=== PATIENT | female | born 1955 | race Caucasian/White ===

== ENCOUNTER → 2017-05-04 | Outpatient (CLI) | payer BC ==
[~2017-05-04] MED LIST: ALBUAER19 INH; ATEN-173 PO; CHOL1TAB42; CNT PO; CRS10 PO; CYCL0.05 OP; DTRSR4 PO; DULO60CA44 PO; ENAL10TA88 PO; ESOM40GR PO; FERR1TAB23 PO; HYDR200T5 PO; LACTTAB7; LOVAZA PO; MELO7.5T5 PO; PRAM1TAB52 PO; STLS PO; TIOTCAP INH; TOPI25TA99 PO; XYZAL PO; ZOLP10TA PO; ZOLP5TAB PO; effexor PO
--- NOTE | 2017-05-09 13:20 | CODING QUERY MEDICAL NECESSITY ---
SUPPORTING DIAGNOSIS NEEDED A supporting diagnosis is required for the test/procedure performed on this patient in order for us to be reimbursed by the patient's insurance. Please provide a supporting diagnosis for the following test/procedure listed below next to the test name along with your signature. *If there is no additional diagnosis for this patient that would support the following test/procedure please document that below next to the test/procedure. Test(s)/Procedure(s) that require a supporting diagnosis: * VITAMIN D, 25-HYDROXY DIAGNOSIS: Provider Signature: Date: Thank you Denise Merino [employer] Once completed, please kindly fax back to [phone] For questions please call [phone]
== END | disposition home or self-care (01) ==
LOC: C.LABBC 09:48
PROVIDERS: ATTEND Anesthesiology
DX: M25.50 Pain in unspecified joint (principal); E55.9 Vitamin D deficiency, unspecified

== ENCOUNTER 2022-11-02 06:54 | Observation (INO) ==
--- NOTE | 2022-09-11 11:59 | PAT Medication Instructions ---
Medication Instructions Date of Service September 11, 2022 Home Medications Medication Instructions Recorded cyclobenzaprine 10 mg tablet 10 mg PO TID PRN muscle spasm #90 10/14/21 tabs topiramate 25 mg tablet (Topamax) 25 mg PO BID #60 tabs 12/21/21 trazodone 50 mg tablet See Rx Instructions .Route 05/10/22 .COMPLEX PRN insomnia #60 tabs albuterol 90 mcg/actuation aerosol inhaler 90 mcg inhalation QID PRN atenolol 25 mg tablet (Tenormin) 25 mg PO QAM cholecalciferol (vitamin D3) 125 mcg (5,000 unit) capsule 5,000 units PO QAM cyclosporine 0.05 % eye drops (Restasis MultiDose) 1 drops ophthalmic (eye) BID docusate sodium 100 mg capsule (Colace) 200 mg PO HS enalapril maleate 20 mg tablet (Vasotec) 20 mg PO QAM esomeprazole magnesium 40 mg capsule,delayed release (Nexium) 40 mg PO QAM levocetirizine 5 mg tablet (Xyzal) 5 mg PO QAM multivitamin-ferrous fumarate-folic acid 18 mg-400 mcg tablet (Centrum Women) 1 tab PO QAM pramipexole 0.25 mg tablet (Mirapex) 0.25 mg PO QPM rosuvastatin 10 mg tablet (Crestor) 10 mg PO QPM tiotropium bromide 18 mcg capsule with inhalation device (Spiriva with HandiHaler) 1 cap inhalation QAM PRN tolterodine 4 mg capsule,extended release 24 hr (Detrol LA) 4 mg PO QAM gabapentin 100 mg capsule 100 mg PO HS acetaminophen 300 mg-codeine 60 mg tablet 0.5 tab PO BID PRN cyclobenzaprine 10 mg tablet 10 mg PO TID PRN leflunomide 10 mg tablet (Arava) 10 mg PO QAM topiramate 25 mg tablet (Topamax) 25 mg PO BID celecoxib 200 mg capsule (Celebrex) 200 mg PO QAM trazodone 50 mg tablet See Rx Instructions .Route .COMPLEX PRN azelastine 137 mcg (0.1 %) nasal spray aerosol 1 spray intranasal BID PRN fexofenadine 180 mg tablet (Nancy Allergy) 180 mg PO QAM gabapentin 250 mg/5 mL (5 mL) oral solution 250 mg PO TID PRN hydrochlorothiazide 25 mg tablet 25 mg PO QAM montelukast 10 mg tablet 10 mg PO HS venlafaxine 150 mg capsule,extended release 24 hr (Effexor XR) 150 mg PO QAM Continue as directed trazodone 50 mg tablet See Rx Instructions .Route .COMPLEX PRN(if needed) ASK your surgeon for instructions acetaminophen 300 mg-codeine 60 mg tablet 0.5 tab PO BID PRN celecoxib 200 mg capsule (Celebrex) 200 mg PO QAM ASK your prescriber and surgeon leflunomide 10 mg tablet (Arava) 10 mg PO QAM DO NOT take the morning of surgery cholecalciferol (vitamin D3) 125 mcg (5,000 unit) capsule 5,000 units PO QAM levocetirizine 5 mg tablet (Xyzal) 5 mg PO QAM multivitamin-ferrous fumarate-folic acid 18 mg-400 mcg tablet (Centrum Women) 1 tab PO QAM cyclobenzaprine 10 mg tablet 10 mg PO TID PRN fexofenadine 180 mg tablet (Nanyc Allergy) 180 mg PO QAM hydrochlorothiazide 25 mg tablet 25 mg PO QAM Take morning of surgery With a small sip of water, OTHERWISE NOTHING TO EAT OR DRINK AFTER MIDNIGHT: albuterol 90 mcg/actuation aerosol inhaler 90 mcg inhalation QID PRN(use if needed; please bring with you to hospital day of surgery if possible) atenolol 25 mg tablet (Tenormin) 25 mg PO QAM cyclosporine 0.05 % eye drops (Restasis MultiDose) 1 drops ophthalmic (eye) BID enalapril maleate 20 mg tablet (Vasotec) 20 mg PO QAM esomeprazole magnesium 40 mg capsule,delayed release (Nexium) 40 mg PO QAM tiotropium bromide 18 mcg capsule with inhalation device (Spiriva with HandiHaler) 1 cap inhalation QAM PRN(if needed) tolterodine 4 mg capsule,extended release 24 hr (Detrol LA) 4 mg PO QAM topiramate 25 mg tablet (Topamax) 25 mg PO BID azelastine 137 mcg (0.1 %) nasal spray aerosol 1 spray intranasal BID PRN gabapentin 250 mg/5 mL (5 mL) oral solution 250 mg PO TID PRN(if needed) venlafaxine 150 mg capsule,extended release 24 hr (Effexor XR) 150 mg PO QAM Take evening before surgery albuterol 90 mcg/actuation aerosol inhaler 90 mcg inhalation QID PRN(if needed) cyclosporine 0.05 % eye drops (Restasis MultiDose) 1 drops ophthalmic (eye) BID docusate sodium 100 mg capsule (Colace) 200 mg PO HS pramipexole 0.25 mg tablet (Mirapex) 0.25 mg PO QPM rosuvastatin 10 mg tablet (Crestor) 10 mg PO QPM gabapentin 100 mg capsule 100 mg PO HS cyclobenzaprine 10 mg tablet 10 mg PO TID PRN(if needed) topiramate 25 mg tablet (Topamax) 25 mg PO BID azelastine 137 mcg (0.1 %) nasal spray aerosol 1 spray intranasal BID PRN(if needed) gabapentin 250 mg/5 mL (5 mL) oral solution 250 mg PO TID PRN(if needed) montelukast 10 mg tablet 10 mg PO HS Other Notes If you have any questions please call us at [phone] or [phone] or [phone] or [phone]
--- NOTE | 2022-09-18 13:41 | Anesthesiology Consultation ---
Date of Service September 18, 2022 Assessment & Plan (1) Encounter for pre-operative examination: - COVID screening: Per assessment on 09/18: No known COVID-19 positive contacts or current COVID-19 related symptoms. Travel screen negative. Patient vaccinated. At surgeon discretion if preop Covid testing being done. - Outpatient joint assessment: Pt currently scheduled for inpatient pathway. If surgeon requests review for outpatient joint pathway, patient is an acceptable candidate for outpatient joint program from anesthesia standpoint pending surgeon's office assessment that patient is motivated, has good support and completes Same Day Joint Program preop requirements. - Ankylosing spondylitis: See testing section for lumbar spine MRI findings from 10/2021. Possible difficult intubation d/t decreased cervical extension. Ultimate anesthesia type decision per anesthesiologist DOS. - Hypokalemia: Potassium 3.2 on preop labs. Will recheck potassium level AM DOS. Chart Review Chart Review: Acceptable Risk for Surgery and Patient seen in Pre Admission Testing Teaching & Discussion Pre-Anesthesia Teaching/Discussion Notes: Instructed NPO after midnight before surgery,except medications with 15 cc of water. Medication instructions provided according to the PAT guidelines. History Surgery Operation Date: 10/23/22 07:15 Proposed Procedures p Left Total Knee Arthroplasty - Uriah Lugo MD Height/Weight Height: 5 ft 6 in Weight: 107.2 kg Allergies Allergy/AdvReac Type Severity Reaction Status Date / Time Sulfa (Sulfonamide Allergy Severe Rash Verified 09/08/22 10:08 Antibiotics) Medications Home Medications Medication Instructions Recorded Confirmed Last Taken albuterol 90 mcg/actuation aerosol 90 mcg inhalation QID PRN sob 02/25/18 09/08/22 Unknown inhaler atenolol 25 mg tablet (Tenormin) 25 mg PO QAM 02/25/18 09/08/22 Unknown cholecalciferol (vitamin D3) 125 5,000 units PO QAM 02/25/18 09/08/22 Unknown mcg (5,000 unit) capsule cyclosporine 0.05 % eye drops 1 drops ophthalmic (eye) BID 02/25/18 09/08/22 Unknown (Restasis MultiDose) docusate sodium 100 mg capsule 200 mg PO HS 02/25/18 09/08/22 Unknown (Colace) enalapril maleate 20 mg tablet 20 mg PO QAM 02/25/18 09/08/22 Unknown (Vasotec) esomeprazole magnesium 40 mg 40 mg PO QAM 02/25/18 09/08/22 Unknown capsule,delayed release (Nexium) levocetirizine 5 mg tablet (Xyzal) 5 mg PO QAM 02/25/18 09/08/22 Unknown multivitamin-ferrous 1 tab PO QAM 02/25/18 09/08/22 Unknown fumarate-folic acid 18 mg-400 mcg tablet (Centrum Women) pramipexole 0.25 mg tablet 0.25 mg PO QPM 02/25/18 09/08/22 Unknown (Mirapex) rosuvastatin 10 mg tablet (Crestor) 10 mg PO QPM 02/25/18 09/08/22 Unknown tiotropium bromide 18 mcg capsule 1 cap inhalation QAM PRN sob 02/25/18 09/08/22 Unknown with inhalation device (Spiriva with HandiHaler) tolterodine 4 mg capsule,extended 4 mg PO QAM 02/25/18 09/08/22 Unknown release 24 hr (Detrol LA) gabapentin 100 mg capsule 100 mg PO HS 10/03/19 09/08/22 Unknown acetaminophen 300 mg-codeine 60 mg 0.5 tab PO BID PRN Pain 10/14/21 09/08/22 Unknown tablet cyclobenzaprine 10 mg tablet 10 mg PO TID PRN muscle spasm #90 10/14/21 09/08/22 Unknown tabs leflunomide 10 mg tablet (Arava) 10 mg PO QAM 10/14/21 09/08/22 Unknown topiramate 25 mg tablet (Topamax) 25 mg PO BID #60 tabs 12/21/21 09/08/22 Unknown celecoxib 200 mg capsule (Celebrex) 200 mg PO QAM 04/12/22 09/08/22 Unknown trazodone 50 mg tablet See Rx Instructions .Route 05/10/22 09/08/22 Unknown .COMPLEX PRN insomnia #60 tabs azelastine 137 mcg (0.1 %) nasal 1 spray intranasal BID PRN sinus 09/08/22 09/08/22 Unknown spray aerosol congestion fexofenadine 180 mg tablet 180 mg PO QAM 09/08/22 09/08/22 Unknown (Nancy Allergy) gabapentin 250 mg/5 mL (5 mL) oral 250 mg PO TID PRN Pain 09/08/22 09/08/22 Unknown solution hydrochlorothiazide 25 mg tablet 25 mg PO QAM 09/08/22 09/08/22 Unknown montelukast 10 mg tablet 10 mg PO HS 09/08/22 09/08/22 Unknown venlafaxine 150 mg 150 mg PO QAM 09/08/22 09/08/22 Unknown capsule,extended release 24 hr (Effexor XR) Past Medical History Medical History Ankylosing spondylitis Anxiety Cervical radiculitis COPD (chronic obstructive pulmonary disease) well controlled Depression GERD (gastroesophageal reflux disease) Hiatal hernia History of COVID-19 2020- mild symptoms History of IBS HTN (hypertension) Hyperlipemia Lumbar stenosis with neurogenic claudication Obesity Polyarthropathy, multiple sites RLS (restless legs syndrome) Sacroiliitis Sleep apnea CPAP (compliant) Suprascapular neuropathy Exercise / Class Metabolic Activity III < 4 Walking/Shop/Light housework (one FS (no CP, mild SOB)) Past Family History Family History Other No family history of adverse response to anesthesia Past Surgical History Surgical History History of bladder surgery bladder sling History of carpal tunnel surgery of right wrist History of cataract surgery bilateral History of colonoscopy History of dilatation and curettage History of esophagogastroduodenoscopy (EGD) History of nasal septoplasty History of tonsillectomy and adenoidectomy Hx of hysterectomy DAVID with unilateral salping-oopherectomy Hx of LASIK S/P cervical spinal fusion ACDF C5-6 1994, ACDF C6-7 2003 S/P epidural steroid injection S/P left knee arthroscopy S/P right knee arthroscopy S/P unilateral salpingo-oophorectomy d/t ovarian cystectomy Status post creation of urethral sling [place] [facility] [place] Past Anesthesia History No Hx of Anesthesia Complications (except PONV) and No Family Hx of Anesthesia Complications History of PONV History of PONV (Improvement when pre-treatment medication given) and Hx of Motion Sickness (+ cruises) Social History Smoking Status: Current every day smoker tobacco type: cigarettes Smoking cigarettes per day: 15 cigs/day Do You Dip or Chew Tobacco: No Hx Alcohol Use: Yes alcohol intake frequency: holidays/special occasions only Hx Substance Use: No substance use type: does not use Review of Systems Seasonal allergies- stable. Patient denies chest pain, shortness of breath, fever, chills, cough, wheezing, palpitations. Physical Exam Vital Signs VITALS BP 103/68 P 74 TEMP 98.8 SP02 95%RA RESP 18 PHYSICAL Decreased cervical extension range of motion. Full TMJ range of motion. TMD 3.5 finger breaths Mallampati Score 3 Dentition: upper sides missing, upper front tooth repaired Lungs: clear throughout to auscultation Cardiac: regular rate and rhythm, no murmurs noted Spine: normal Carotid arteries: negative bruit Extremities: no LE edema Lab Results Anesthesia Preop Results Results Anesthesia Widget: WBC 8.90 K/ul (4.8-10.8) 09/18/22 Hgb 14.0 g/dl (12.0-16.0) 09/18/22 Hct 42.7 % (37.0-47.0) 09/18/22 Plt 240 K/uL (130-400) 09/18/22 Na 140 mmol/L (136-145) 09/18/22 K 3.2 mmol/L (3.5-5.1) L 09/18/22 Cl 105 mmol/L (98-107) 09/18/22 CO2 27 mmol/L (21-32) 09/18/22 BUN 12 mg/dl (6-23) 09/18/22 Creat 0.65 mg/dl (0.6-1.2) 09/18/22 Glucose Level 127 mg/dl (70-99(Fasting)) H 09/18/22 PT 10.3 Seconds (9.0-12.0) 09/18/22 PTT 28.4 Seconds (21.0-31.0) 09/18/22 INR 0.9 (0.9-1.1) 09/18/22 Urine Color Yellow 09/18/22 Urine Appearance Clear (Clear) 09/18/22 Urine pH 7.0 (4.5-7.5) 09/18/22 Urine Specific [place] 1.019 (1.000-1.030) 09/18/22 Urine Protein Negative (Negative) 09/18/22 Urine Glucose (UA) Negative (Negative) 09/18/22 Urine Ketones Negative (Negative) 09/18/22 Urine Blood Negative (Negative) 09/18/22 Urine Nitrite Negative (Negative) 09/18/22 Urine Bilirubin Negative (Negative) 09/18/22 Urine Urobilinogen Negative (Negative) 09/18/22 Urine Leukocyte Esterase Negative (Negative) 09/18/22 Blood Type O Positive 09/18/22 Antibody Screen NEGATIVE 09/18/22 Testing Electrocardiogram Date: 09/18/22 NSR at 68bpm. Chest X-Ray Date: 09/18/22 FINDINGS: PA and lateral chest radiographs are obtained. No prior studies are available for comparison at the time of dictation. The cardiomediastinal silhouette is unremarkable. The lungs and pleural spaces are clear noting mild bibasilar scarring/atelectasis. There is no pneumothorax. The skeletal structures are osteopenic. The bony thorax appears intact. Fusion hardware is noted in the lower cervical spine. Degenerative change is seen in the thoracic region. IMPRESSION: No active disease in the chest. Other Testing Lumbar MRI Date: 10/27/21 The alignment is anatomical. Disks are normal in height and signal. L1-L2: No significant abnormality. L2-L3: There is a large posterior disc bulge with moderate to severe canal stenosis, AP diameter 7 mm. No significant neuroforaminal stenosis is seen. L3-L4: Large posterior disc bulge and facet arthropathy results in moderate bilateral neural foraminal stenosis. There is severe canal stenosis, AP diameter 6.5 mm. L4-L5: Moderate bilateral neural foraminal stenosis is seen. There is a broad- based posterior disc bulge and bilateral facet arthropathy resulting in severe canal stenosis, AP diameter 6 mm. L5-S1: Large posterior disc bulge results in severe bilateral neuroforaminal stenosis. No significant canal stenosis is seen. The spinal ligaments are intact, without evidence of disruption or abnormal signal intensity. The spinal cord is normal in signal intensity and there is no evidence of cord contusion. There is no evidence of an extradural, intradural, extramedullary or intramedullary lesion. A small amount of edema in the posterior soft tissues is nonspecific. IMPRESSION: Interval worsening of multilevel disc disease. There is now up to severe bilateral neural foraminal stenosis and severe canal stenosis, AP diameter 6 mm. No cord edema is seen. COVID-19 Risk Screen Screening Information COVID-19 Screen Date: 09/18/22 Exposure 21 Days Family/Household +COVID Last 21 Days: No Exposure 10 Days Any COVID Exposure Last 10 Days: No Symptoms Last 10 Days Experienced COVID Sx Last 10 Days: No + COVID 0-90 Days COVID + in Last 0-90 Days: No
--- NOTE | 2022-10-31 17:35 | History & Physical Report ---
Date of Service October 31, 2022 Assessment & Plan (1) Primary osteoarthritis of left knee: Plan: Treatment options discussed with patient. She has failed conservative measures and would like to proceed with surgical invention. Risks, benefits and alternatives to surgery including but not limited to infection, DVT, pain, stiffness, need for revision surgery, damage to blood vessels, damage to nerves, PE, , were discussed with the patient and they wish to proceed. Plan for left total knee arthroplasty scheduled for November 02 at [facility] with Dr. Lugo. Plan on aspirin 81 mg twice daily for 1 month postop versus Xarelto 10 mg daily for 1 month postop for DVT prophylaxis. Plan on outpatient physical therapy postop. Questions answered. Patient will follow-up postoperatively. History of Present Illness Chief Complaint: Left knee pain Primary Care Provider: EVAN Mantilla 67-year-old female with past medical history significant for GERD, hypertension who presents with ongoing left knee pain. Pain is interfering with her daily activities. She is failed conservative measures. She previously underwent left knee arthroscopy with ongoing pain and progressive arthritis. She would like to proceed with surgical intervention. Patient denies headaches, sweats, fevers, chills, double vision, blurred vision, cough, sore throat, dysphagia, chest pain, sob, wheezing, n/v/d/c, numbness, tingling, fatigue, urinary symptoms, mood disorders. ROS positive for left knee pain and stiffness. Allergies Allergy/AdvReac Type Severity Reaction Status Date / Time Sulfa (Sulfonamide Allergy Severe Rash Verified 09/08/22 10:08 Antibiotics) Home Medications Medication Instructions Recorded Confirmed Type albuterol 90 mcg/actuation aerosol 90 mcg inhalation QID PRN sob 02/25/18 09/08/22 History inhaler atenolol 25 mg tablet (Tenormin) 25 mg PO QAM 02/25/18 09/08/22 History cholecalciferol (vitamin D3) 125 5,000 units PO QAM 02/25/18 09/08/22 History mcg (5,000 unit) capsule cyclosporine 0.05 % eye drops 1 drops ophthalmic (eye) BID 02/25/18 09/08/22 History (Restasis MultiDose) docusate sodium 100 mg capsule 200 mg PO HS 02/25/18 09/08/22 History (Colace) enalapril maleate 20 mg tablet 20 mg PO QAM 02/25/18 09/08/22 History (Vasotec) esomeprazole magnesium 40 mg 40 mg PO QAM 02/25/18 09/08/22 History capsule,delayed release (Nexium) levocetirizine 5 mg tablet (Xyzal) 5 mg PO QAM 02/25/18 09/08/22 History multivitamin-ferrous 1 tab PO QAM 02/25/18 09/08/22 History fumarate-folic acid 18 mg-400 mcg tablet (Centrum Women) pramipexole 0.25 mg tablet 0.25 mg PO QPM 02/25/18 09/08/22 History (Mirapex) rosuvastatin 10 mg tablet (Crestor) 10 mg PO QPM 02/25/18 09/08/22 History tiotropium bromide 18 mcg capsule 1 cap inhalation QAM PRN sob 02/25/18 09/08/22 History with inhalation device (Spiriva with HandiHaler) tolterodine 4 mg capsule,extended 4 mg PO QAM 02/25/18 09/08/22 History release 24 hr (Detrol LA) gabapentin 100 mg capsule 100 mg PO HS 10/03/19 09/08/22 History acetaminophen 300 mg-codeine 60 mg 0.5 tab PO BID PRN Pain 10/14/21 09/08/22 History tablet cyclobenzaprine 10 mg tablet 10 mg PO TID PRN muscle spasm #90 10/14/21 09/08/22 Rx tabs leflunomide 10 mg tablet (Arava) 10 mg PO QAM 10/14/21 09/08/22 History topiramate 25 mg tablet (Topamax) 25 mg PO BID #60 tabs 12/21/21 09/08/22 Rx celecoxib 200 mg capsule (Celebrex) 200 mg PO QAM 04/12/22 09/08/22 History trazodone 50 mg tablet See Rx Instructions .Route 05/10/22 09/08/22 Rx .COMPLEX PRN insomnia #60 tabs azelastine 137 mcg (0.1 %) nasal 1 spray intranasal BID PRN sinus 09/08/22 09/08/22 History spray aerosol congestion fexofenadine 180 mg tablet 180 mg PO QAM 09/08/22 09/08/22 History (Nancy Allergy) gabapentin 250 mg/5 mL (5 mL) oral 250 mg PO TID PRN Pain 09/08/22 09/08/22 History solution hydrochlorothiazide 25 mg tablet 25 mg PO QAM 09/08/22 09/08/22 History montelukast 10 mg tablet 10 mg PO HS 09/08/22 09/08/22 History venlafaxine 150 mg 150 mg PO QAM #30 caps 09/25/22 Rx capsule,extended release 24 hr (Effexor XR) Past Med/Surg History Medical History Ankylosing spondylitis Anxiety Cervical radiculitis COPD (chronic obstructive pulmonary disease) well controlled Depression GERD (gastroesophageal reflux disease) Hiatal hernia History of COVID-2020- mild symptoms History of IBS HTN (hypertension) Hyperlipemia Lumbar stenosis with neurogenic claudication Obesity Polyarthropathy, multiple sites RLS (restless legs syndrome) Sacroiliitis Sleep apnea CPAP (compliant) Suprascapular neuropathy Surgical History History of bladder surgery bladder sling History of carpal tunnel surgery of right wrist History of cataract surgery bilateral History of colonoscopy History of dilatation and curettage History of esophagogastroduodenoscopy (EGD) History of nasal septoplasty History of tonsillectomy and adenoidectomy Hx of hysterectomy DAVID with unilateral salping-oopherectomy Hx of LASIK S/P cervical spinal fusion ACDF C5-6 1994, ACDF C6-7 2003 S/P epidural steroid injection S/P left knee arthroscopy S/P right knee arthroscopy S/P unilateral salpingo-oophorectomy d/t ovarian cystectomy Status post creation of urethral sling by suprapubic approach [facility] [place] with Dr Miles Family History Other No family history of adverse response to anesthesia Social History Smoking Status: Current every day smoker Cigarettes Per Day: 15 cigs/day; Second Hand Exposure: Yes; Do You Dip or Chew Tobacco: No; Hx Alcohol Use: Yes Hx Substance Use: No Preferred Language: Irish Communication Ability: Effective Visual Impairment: No Limitations Hearing Ability: Normal Metal Door Assembler Required: No Beliefs That Will Affect Care: None marital status: Current Living Situation: Spouse current occupational status: employed current occupation: shipping and receiving associate Adhysteria Feels Safe at Home: Yes Assistive Devices: Cane and CPAP Review of Systems All systems reviewed & are unremarkable except as noted in HPI & below Physical Exam Constitutional: well developed and well nourished; no acute distress Eyes: PERRL, conjunctivae normal, anicteric sclerae ENMT: external ear and nose normal, oropharynx normal Neck: trachea midline, no thyromegaly Respiratory: normal respiratory effort, lungs clear to auscultation Cardiovascular: RRR, no murmur, no edema Musculoskeletal: Left knee: Mild effusion. Medial joint line tenderness. Stable to valgus and varus stress test. Range of motion 0 to 125 degrees. Pain with passive range of motion. Skin: no rashes, warm and dry Neurologic: patellar DTR's 2+ bilat, sensation intact Psychiatric: A+Ox3, euthymic affect Results & Data Laboratory Results Left knee radiographs demonstrate end-stage osteoarthritis, [id number] medial compartment. There is vertical osteophytes.
[~2022-11-02 06:54] MED LIST changes: +ACETAMINOPHEN 500 MG TAB PO SCH; -ALBUAER19 INH; -ATEN-173 PO; +BUPIVACAINE 0.5 % 5 MG/1 ML PF 10ML VIAL ONE; -CHOL1TAB42; -CNT PO; -CRS10 PO; -CYCL0.05 OP; +CeleBREX 200 MG CAP PO SCH; +DEXAMETHASONE SOD INJ 4 MG/ML VIAL ONE; -DTRSR4 PO; -DULO60CA44 PO; -ENAL10TA88 PO; +EPINEPHrine INJ 1 MG/ML AMP ONE; -ESOM40GR PO; +FAMOTIDINE 20 MG TAB PO SCH; -FERR1TAB23 PO; +GABAPENTIN 300 MG CAP PO SCH; -HYDR200T5 PO; -LACTTAB7; +LIDOCAINE 2% 2 ML VIAL/AMP(20MG/ML) INFIL ONE; -LOVAZA PO; +LR 15ML/HR IV SCH; -MELO7.5T5 PO; +METOCLOPRAMIDE HCL 10 MG TABLET PO SCH; +MIDAZOLAM HCL 1 MG/ML 2ML VIAL ONE; +ONDANSETRON INJ 2 MG/ML 2 ML VIAL ONE; +ORTHO JOINT ANESTHETIC ONE; -PRAM1TAB52 PO; +PROPOFOL IV EMULSION 10 MG/ML 20 ML VIAL IV ONE; +ROPIVACAINE 0.5% 5 MG/ML 30 ML VIAL ONE; +ROPIVACAINE 0.5% HCL/PF 150 MG, BUPIVACAINE 0.75% MPF 20 ML, EPINEPHrine 30MG/30ML (OR ... INSTIL SCH; -STLS PO; -TIOTCAP INH; -TOPI25TA99 PO; +TRANEXAMIC ACID 1,000 MG **IV Intra-op IV SCH; +TRANEXAMIC ACID 1,000 MG **IV Pre-op IV SCH; -XYZAL PO; -ZOLP10TA PO; -ZOLP5TAB PO; +ceFAZolin 2000MG 2,000 MG/15 ML SYR IV SCH; +dexAMETHasone 4 MG TAB PO SCH; -effexor PO; +fentaNYL citrate PF 100 MCG/2 ML VIAL ONE
--- NOTE | 2022-11-02 07:17 | History & Physical Bridge Note ---
Date of Service November 02, 2022 History & Physical Bridge Note I have examined the patient, reviewed the History & Physical and in the interval since the performance of the History & Physical I have noted the following changes of clinical significance: no changes noted
[2022-11-02] MEDS ORDERED: NALOXONE HCL 0.4 MG/1 ML VIAL/CARP IV PRN ×2 (07:58→11:48)
[2022-11-02] MEDS ORDERED: fentaNYL citrate PF 100 MCG/2 ML VIAL IV PRN (07:58)
[2022-11-02] MEDS ORDERED: LABETALOL HCL IV 5 MG/ML 20ML IV PRN (07:58)
[2022-11-02] MEDS ORDERED: ePHEDrine sulfate 50 MG/ML AMP IV PRN (07:58)
[2022-11-02] MEDS ORDERED: HYDROmorphone INJ 1 MG/ML SYRINGE IV PRN (07:58)
[2022-11-02] MEDS ORDERED: ONDANSETRON INJ 2 MG/ML 2 ML VIAL IV PRN ×2 (07:58→11:48)
[2022-11-02] MEDS ORDERED: ATROPINE SULFATE 0.1 MG/ML 10ML SYR IV PRN (07:58)
[2022-11-02] MEDS ORDERED: FLUMAZENIL 0.1 MG/1 ML 10 ML VIAL IV PRN (07:58)
[2022-11-02] MEDS ORDERED: PROMETHAZINE HCL 12.5 MG in SODIUM CHLORIDE 0.9% 50 ML IV PRN (07:58)
[2022-11-02] MEDS ORDERED: PHENYLEPHRINE 100MCG/ML 5ML SYR ONE (08:14)
[2022-11-02] MEDS ORDERED: ePHEDrine sulfate 50 MG/ML SYR ONE (08:31)
[2022-11-02] MEDS ORDERED: MIDAZOLAM HCL 1 MG/ML 2ML VIAL ONE (08:33)
[2022-11-02] MEDS ORDERED: PROPOFOL IV EMULSION 10 MG/ML 20 ML VIAL IV ONE (09:22)
--- NOTE | 2022-11-02 09:27 | Operative Report ---
Post Operative Report Pre & Post Diagnosis Operation Date: 11/02/22 07:00 Pre-Op Diagnosis: Left Knee Osteoarthritis Post-Op Diagnosis: Left Knee Osteoarthritis I identified the patient and participated in the time-out.: Yes Procedure Operation Date: 11/02/22 07:00 Actual Procedures p Left Total Knee Arthroplasty(Left), lateral release, fidelia and Acticoat superficial wound VAC- Uriah Lugo MD Surgeon Uriah Lugo MD Industrial Robotics Mechanic Nabil ENRIQUE Estimated Blood Loss 5 Findings Consistent with Post-Op Diagnosis Specimens Bone cuts Drains 2 Hemovac drains Anesthesia Type MAC Spinal Regional Complications none Disposition Disposition: Recovery Room Indications 67-year-old female with progressive osteoarthritis left knee failed conservative management. Primarily medial compartment osteoarthritis with [id number] medial compartment with a varus knee. Description of Procedure Patient was taken to the operating room placed supine on the operating table and anesthetized under spinal MAC regional block anesthesia. Exam under anesthesia demonstrated obese upper thigh moderate obesity within the BMI is 38. A pneumatic tourniquet was placed about the thigh of the left lower extremity. The left lower extremity was prepped and draped in usual sterile fashion. The leg was elevated exsanguinated with an Esmarch bandage and the pneumatic tourniquet was raised to 325 mm mercury. An anterior incision was made across the left knee. The skin was incised longitudinally subcutaneous flaps were elevated and an incision was made through the medial retinaculum extending up into the mid third of the quadriceps tendon and extended down to the medial tibial tubercle. Intra-articular findings demonstrated medial compartment osteoarthritis [id number]. She had more than typical scar tissue in the synovial tissue including the suprapatellar area where there were several adhesions of scar tissue. Also had a scarred suprapatellar plica and medial plica. The knee was exposed by excising the infrapatellar fat pad, excising the meniscal remnants and anterior cruciate ligament. Any inflamed synovial tissue was resected including the scarred adhesions and the plicas. The fat pad over the anterior femur was resected for placement of the component in that area. The lateral synovial bands were release. The femur was exposed. The custom femoral cutting block was pinned in position. The distal femoral cutting block was applied. The distal femoral cut was made with the oscillating saw. The size 7, 4-in-1 cutting block was placed. The anterior and posterior chamfer cuts were made. Patient had very dense hard bone. The knee was extended and a subperiosteal peel lateral release was performed around the patella. The patella width was measured and width was reproduced using freehand cut technique. The 32 millimeter symmetrical patella was used. 3 drill holes are made for the pegs. The tibia was exposed. A custom tibial cutting block was positioned and drill holes were made for the cutting guide. Cutting guide was placed and the proximal cut was made with the oscillating saw. All osteophytes were resected. The lamina edge brusher was used to assess ligamentous balance and the ligaments were balanced in extension and flexion. A medial posterior medial release and PCL had to be resected in order to balance the flexion extension gaps. The tibia was reexposed and measured for a size E tibial component. This was externally rotated in line with the tibial tubercle and the fixation pins we re drilled. The proximal tibia was fashioned with the drill and punch. The size 7 CR femoral trial was inserted. The trial MC inserts were used. The 13 mm insert gave balanced ligaments through full range of motion. The patella tracked with some lift off and lateral tilt so the lateral release was performed preserving the synovium and the patella tracked centrally. the trials were removed. The orthomix anesthetic cocktail was injected per protocol. The knee was then copiously irrigated with pulsatile lavage saline solution. The final components were cemented with Refobacin bone cement. The final components were 7 standard CR left persona femoral component, E left tibial component, 13 mm MC tibial polyethylene 32 mm symmetrical patella polyethylene. After the cement cured with the knee in full extension the Betadine soak was used per protocol. The knee joint was copiously irrigated with pulsatile lavage saline solution . 2 drains were brought out laterally and connected to a Hemovac. The quadriceps tendon and medial retinaculum were closed with interrupted [id number] #1 Vicryl sutures. The knee was taken through a full range of motion which was 0 through 130 degrees and the repair was secure. The subcutaneous tissues were closed with 2-0 Vicryl sutures and skin was closed with mary jo.A Fidelia and Acticoat superficial wound VAC was applied and the patient tolerated the procedure well. Nabil ENRIQUE my physician insurance sales assistant participated as certified surgical first assistant and was an integral part in all aspects of the procedure, he assisted in soft tissue retraction, instrument management ,leg positioning, the closure, application of the superficial wound VAC and will participate in the postoperative care of the patient. I attest to the content of the Intraoperative Record and any orders documented therein. Any exceptions are noted below.
--- NOTE | 2022-11-02 10:38 | XRay Report ---
XR knee LT 1 or 2V routine CLINICAL HISTORY: Postoperative evaluation. COMPARISON: Knee radiographs August 04, 2022. MRI of the left knee September 18, 2022. FINDINGS: Alignment of the total left knee arthroplasty is anatomic. There is no periprosthetic frac ture or unexpected radiopaque foreign body. There are skin mary jo. Surgical drains are noted. IMPRESSION: Expected findings following total left knee arthroplasty. ACT 112: Negative or not required by law. Electronically signed by: Curtis Asher M.D. 11/02/2022 10:37 AM
--- NOTE | 2022-11-02 11:18 | Anesthesiology Progress Note ---
Date of Service November 02, 2022 Anesthesia Post Procedure Vital Signs Vital Signs: Temp Pulse Resp BP Pulse Ox O2 Del Method O2 Flow Rate 11/02/22 10:40 72 14 117/67 97 Nasal Cannula 2 11/02/22 10:30 69 13 106/72 99 Nasal Cannula 2 11/02/22 11:10 36.5 C 70 16 117/68 97 Nasal Cannula 2 11/02/22 11:00 70 14 112/69 97 Nasal Cannula 2 11/02/22 10:50 76 12 108/68 98 Nasal Cannula 2 11/02/22 10:20 71 14 112/68 98 Oxymask 4 11/02/22 10:10 73 16 107/65 100 Oxymask 6 11/02/22 09:58 36.2 C L 78 14 106/66 97 Oxymask 6 Transfer of Care Handoff Completed per policy Notes Mental Status: alert / awake / arousable Patient Amnestic to Procedure: Yes Nausea / Vomiting: adequately controlled Pain: adequately controlled Airway Patency, RR, SpO2: stable & adequate BP & HR: stable & adequate Hydration State: stable & adequate Neuraxial Anesthesia: was administered and sensory block is resolving Anesthetic Complications: no major complications apparent
[2022-11-02] MEDS ORDERED: AZELASTINE HCL 0.1% NASAL 200 SPRAYS/27,400 MCG BTL PRN (11:48)
[2022-11-02] MEDS ORDERED: traZODone HCL 50 MG TAB PO PRN (11:48)
[2022-11-02] MEDS ORDERED: MAGNESIUM HYDROXIDE SUSP 30 ML UDC PO PRN (11:48)
[2022-11-02] MEDS ORDERED: CYCLOBENZAPRINE HCL 10 MG TAB PO PRN (11:48)
[2022-11-02] MEDS ORDERED: diphenhydrAMINE 50 MG/ML VIAL IV PRN (11:48)
[2022-11-02] MEDS ORDERED: bisacodyL 10 MG SUPP PR PRN (11:48)
[2022-11-02] MEDS ORDERED: HYDROmorphone INJ 0.5 MG/0.5 ML SYR IV PRN (11:48)
[2022-11-02] MEDS ORDERED: ALBUTEROL HFA 8 GM INHALER INH PRN (12:02)
--- NOTE | 2022-11-02 12:09 | Hospitalist Consultation ---
Date of Consultation November 02, 2022 Assessment & Plan (1) Status post total left knee replacement: -Currently stable on RA and hemodynamically stable -Pain control, perioperative abx, DVT PPX, and IV fluids per the primary team -Agree with am labs, we will follow -Ordered HS CPAP while admitted -Thank you for allowing us to participate in the care of this patient, please reach out with any questions or concerns -Medicine will continue to follow (2) Ankylosing spondylitis: -Stable -Continue cyclosporine eye drops and artificial tears as needed -Ok to hold Leflunomide until discharge (3) COPD (chronic obstructive pulmonary disease): -Stable on RA -Continue prn Spiriva and albuterol (4) HTN (hypertension): -Stable -Would continue to hold hydrochlorothiazide today as she is euvolemic -Can continue atenolol, enalapril, and HCTZ tomorrow if hemodynamically stable with stable renal function/electrolytes (5) Anxiety: -Continue venlafaxine, HS Trazodone (6) RLS (restless legs syndrome): -Continue Pramipexole (7) Hyperlipemia: -Contiue statin (8) GERD (gastroesophageal reflux disease): -Agree with daily pantoprazole while admitted Plan The patient was discussed with Dr. Padilla at the time of the consult Supervising Physician Co-Signing Physician Notes I personally saw and examined the patient. I verified all miles points and agree with Rigoberto Murguia PA-C with the following exceptions and/or additions: 67 year old female POD# left total knee. EBL 5ml. Pt reports some orthostatic dizziness on sitting up although this is also not that unusual for her. O/E HS RRR, no murmurs, Chest CTAB, Abdo SNT, trace b/l pitting edema A/P VTE/Pain/bowel management per primary orthopedic team. HTN - given current BP and dizziness noted by patient will delay restarting HCTZ and enalapril by another day (of note she did take enalapril this morning but not the HCTZ Otherwise as above History of Present Illness Reason for Consultation: Post-op medical management Requesting Physician: Uriah Lugo MD Attending Physician: Dr. Parminder Padilla History of Present Illness Paola is a 67 year old female with a PMH significant for COPD, HTN, dyslipidemia, GERD, ankylosing spondylitis, anxiety and depression who presented to the [facility] on 11/02/22 for scheduled Left Total Knee Arthroplasty with Dr. Lugo. Review of vitals shows the patient to be stable since arrival. Per the operative report, anesthesia was listed as "MAC [facility]", EBL was listed as 5 cc, and there were no reported intraoperative complications. At the time of the exam the patient was sitting in bed in no acute distress with her sitting bedside. She states that she is feeling well post-op, her only complaint at this time is a sore throat from being intubated. She confirms that she had her am hypertensives, but held her HCTZ, she did take her Leflunomide this am as well. She denies recent fever, chills, chest pain, SOB, abd pain, nasuea, vomiting, diarrhea, dysuria, hematuria, and LE swelling. She does have NALLELY and wears HS CPAP but forgot to bring her machine. Please refer to Dr. Padilla's attestation for any changes to the treatment plan Allergies Allergy/AdvReac Type Severity Reaction Status Date / Time Sulfa (Sulfonamide Allergy Severe Rash Verified 11/02/22 07:10 Antibiotics) Home Medications Medication Instructions Recorded Confirmed Type albuterol 90 mcg/actuation aerosol 90 mcg inhalation QID PRN sob 02/25/18 11/02/22 History inhaler atenolol 25 mg tablet (Tenormin) 25 mg PO QAM 02/25/18 11/02/22 History cholecalciferol (vitamin D3) 125 5,000 units PO QAM 02/25/18 11/02/22 History mcg (5,000 unit) capsule cyclosporine 0.05 % eye drops 1 drops ophthalmic (eye) BID 02/25/18 11/02/22 History (Restasis MultiDose) docusate sodium 100 mg capsule 200 mg PO HS 02/25/18 11/02/22 History (Colace) enalapril maleate 20 mg tablet 20 mg PO QAM 02/25/18 11/02/22 History (Vasotec) esomeprazole magnesium 40 mg 40 mg PO QAM 02/25/18 11/02/22 History capsule,delayed release (Nexium) levocetirizine 5 mg tablet (Xyzal) 5 mg PO QAM 02/25/18 09/08/22 History multivitamin-ferrous 1 tab PO QAM 02/25/18 11/02/22 History fumarate-folic acid 18 mg-400 mcg tablet (Centrum Women) pramipexole 0.25 mg tablet 0.25 mg PO QPM 02/25/18 11/02/22 History (Mirapex) rosuvastatin 10 mg tablet (Crestor) 10 mg PO QPM 02/25/18 11/02/22 History tiotropium bromide 18 mcg capsule 1 cap inhalation QAM PRN sob 02/25/18 11/02/22 History with inhalation device (Spiriva with HandiHaler) tolterodine 4 mg capsule,extended 4 mg PO QAM 02/25/18 11/02/22 History release 24 hr (Detrol LA) gabapentin 100 mg capsule 100 mg PO HS 10/03/19 11/02/22 History acetaminophen 300 mg-codeine 60 mg 0.5 tab PO BID PRN Pain 10/14/21 11/02/22 History tablet cyclobenzaprine 10 mg tablet 10 mg PO TID PRN muscle spasm #90 10/14/21 11/02/22 Rx tabs leflunomide 10 mg tablet (Arava) 10 mg PO QAM 10/14/21 11/02/22 History topiramate 25 mg tablet (Topamax) 25 mg PO BID #60 tabs 12/21/21 11/02/22 Rx celecoxib 200 mg capsule (Celebrex) 200 mg PO QAM 04/12/22 11/02/22 History trazodone 50 mg tablet See Rx Instructions .Route 05/10/22 11/02/22 Rx .COMPLEX PRN insomnia #60 tabs azelastine 137 mcg (0.1 %) nasal 1 spray intranasal BID PRN sinus 09/08/22 11/02/22 History spray aerosol congestion fexofenadine 180 mg tablet 180 mg PO QAM 09/08/22 11/02/22 History (Nancy Allergy) gabapentin 250 mg/5 mL (5 mL) oral 250 mg PO TID PRN Pain 09/08/22 11/02/22 History solution hydrochlorothiazide 25 mg tablet 25 mg PO QAM 09/08/22 11/02/22 History montelukast 10 mg tablet 10 mg PO HS 09/08/22 11/02/22 History venlafaxine 150 mg 150 mg PO QAM #30 caps 09/25/22 11/02/22 Rx capsule,extended release 24 hr (Effexor XR) levocetirizine 5 mg tablet (Xyzal) 5 mg PO DAILY 11/02/22 11/02/22 History Patient History Medical History Ankylosing spondylitis Anxiety Cervical radiculitis COPD (chronic obstructive pulmonary disease) well controlled Depression GERD (gastroesophageal reflux disease) Hiatal hernia History of COVID-19 2020- mild symptoms History of IBS HTN (hypertension) Hyperlipemia Lumbar stenosis with neurogenic claudication Obesity Polyarthropathy, multiple sites RLS (restless legs syndrome) Sacroiliitis Sleep apnea CPAP (compliant) Suprascapular neuropathy Surgical History History of bladder surgery bladder sling History of carpal tunnel surgery of right wrist History of cataract surgery bilateral History of colonoscopy History of dilatation and curettage History of esophagogastroduodenoscopy (EGD) History of nasal septoplasty History of tonsillectomy and adenoidectomy Hx of hysterectomy DAVID with unilateral salping-oopherectomy Hx of LASIK S/P cervical spinal fusion ACDF C5-6 1994, ACDF C6-7 2003 S/P epidural steroid injection S/P left knee arthroscopy S/P right knee arthroscopy S/P unilateral salpingo-oophorectomy d/t ovarian cystectomy Status post creation of urethral sling by suprapubic approach [facility] with Dr Miles Family History Other No family history of adverse response to anesthesia Social History Smoking Status: Current every day smoker Cigarettes Per Day: 15 cigs/day; Second Hand Exposure: Yes; Do You Dip or Chew Tobacco: No; Tobacco Cessation Education Requested by Patient: No Hx Alcohol Use: Yes Hx Substance Use: No Preferred Language: Botswanan Communication Ability: Effective Visual Impairment: No Limitations Hearing Ability: Normal Primary Operator Required: No Beliefs That Will Affect Care: None marital status: Current Living Situation: Spouse current occupational status: employed current occupation: in store marketing associate [employer] Other Information That Helps Us Care for You: No Feels Safe at Home: Yes Safety Concerns: Feels Safe At This Time Assistive Devices: Walker Physical Exam Physical Exam: Physical Exam: General: In no acute distress, stated age, well-nourished, good hygiene HEENT: Normocephalic, atraumatic, no scleral icterus, pupils around round, symmetrical, and reactive to light, moist mucus membranes, trachea midline, no thyromegaly Chest/Pulm: No respiratory distress, symmetrical chest expansion, clear breath sounds throughout Cardiac: RRR, no murmurs noted Abdomen: Negative for ascites and bruising, normoactive bowel sounds, soft, non-tender to palpation throughout Musculoskeletal: LLE is currently wrapped and with brace in place, no signs of active bleeding, intact sensation and motor function in the BL feet Extremities: Radial, dorsalis pedis, and posterior tibial pulses are intact and symmetrical, no edema noted in the BL LE's Skin: Warm, dry, no rashes , lesions, or scars noted Neuro: Alert and oriented to person, place, month, year, and president, no focal defects, no tremors noted Psych: No acute distress, calm and cooperative during the exam Results & Data Results & Data Vital Signs (Past 12 Hours) Vital Signs Temp Pulse Pulse Resp BP Pulse Ox O2 Del Method 11/02/22 11:45 36.7 C 75 16 112/68 96 Nasal Cannula 11/02/22 11:30 72 15 127/83 97 Nasal Cannula 11/02/22 11:20 73 15 116/71 98 Nasal Cannula 11/02/22 10:40 72 14 117/67 97 Nasal Cannula 11/02/22 10:30 69 13 106/72 99 Nasal Cannula 11/02/22 11:10 36.5 C 70 16 117/68 97 Nasal Cannula 11/02/22 11:00 70 14 112/69 97 Nasal Cannula 11/02/22 10:50 76 12 108/68 98 Nasal Cannula 11/02/22 10:20 71 14 112/68 98 Oxymask 11/02/22 10:10 73 16 107/65 100 Oxymask 11/02/22 09:58 36.2 C L 78 14 106/66 97 Oxymask O2 Flow Rate 11/02/22 11:45 2 11/02/22 11:30 2 11/02/22 11:20 2 11/02/22 10:40 2 11/02/22 10:30 2 11/02/22 11:10 2 11/02/22 11:00 2 11/02/22 10:50 2 11/02/22 10:20 4 11/02/22 10:10 6 11/02/22 09:58 6 Diagnostic Findings Knee X-Ray 11/02/22 10:08 XR knee LT 1 or 2V routine CLINICAL HISTORY: Postoperative evaluation. COMPARISON: Knee radiographs August 04, 2022. MRI of the left knee September 18, 2022. FINDINGS: Alignment of the total left knee arthroplasty is anatomic. There is no periprosthetic fracture or unexpected radiopaque foreign body. There are skin mary jo. Surgical drains are noted. IMPRESSION: Expected findings following total left knee arthroplasty. ACT 112: Negative or not required by law. Electronically signed by: Curtis Asher M.D. 11/02/2022 10:37 AM PG Care Time/CCT Total # of Minutes Spent Total Time Spent with Patient: Total time spent is greater than 50% in coordination of care (as documented) at patient's floor/unit and/or counseling patient: C[place] [address] IN/OBS CONSULT LVL 4,60M Patient Type Established Medical Decision Making High Complexity Diagnoses Status post total left knee replacement Z96.652 Ankylosing spondylitis M45.9 COPD (chronic obstructive pulmonary disease) J44.9 HTN (hypertension) I10 Anxiety F41.9 RLS (restless legs syndrome) G25.81 Hyperlipemia E78.5 GERD (gastroesophageal reflux disease) K21.9
[2022-11-02] MEDS ORDERED: GABAPENTIN 100 MG CAP PO PRN (12:16)
[2022-11-02] MEDS: SODIUM CHLORIDE 0.9% 1000ML 1,000 ML IV SCH ×2 (12:44→22:36)
[2022-11-02] MEDS ORDERED: ARTIFICIAL TEARS OP PRN (13:00)
[2022-11-02] MEDS: ACETAMINOPHEN 500 MG TAB PO SCH ×2 (14:28→21:22)
[2022-11-02] MEDS: ceFAZolin 2000MG 2,000 MG/15 ML SYR IV SCH ×2 (15:49→23:49)
[2022-11-02] MEDS: GABAPENTIN 100 MG CAP PO SCH (21:22)
[2022-11-02] MEDS: MONTELUKAST SODIUM 10 MG TABLET PO SCH (21:23)
[2022-11-02] MEDS: TOPIRAMATE 25 MG TAB PO SCH (21:23)
[2022-11-02] MEDS: SENNA 8.6 MG TAB PO SCH (21:24)
[2022-11-02] MEDS: DOCUSATE SODIUM 100 MG CAP PO SCH (21:24)
[2022-11-02] MEDS: ASPIRIN 81 MG ECTAB PO SCH (21:24)
[2022-11-02] MEDS: ROSUVASTATIN CALCIUM 10 MG TAB PO SCH (21:25)
[2022-11-02] MEDS: PRAMIPEXOLE DIHYDROCHLO 0.25 MG TAB PO SCH (21:26)
[2022-11-03] MEDS: ACETAMINOPHEN 500 MG TAB PO SCH ×3 (06:08→21:05)
[2022-11-03] MEDS: oxyCODONE HCL IR 5 MG TAB (IMMEDIATE RELEASE) PO PRN ×3 (06:14→18:42)
[2022-11-03 07:12] LABS: Hematocrit (blood only) 38.8 % (37.0-47.0); Hemoglobin 12.7 g/dl (12.0-16.0); Mean Corpuscular Hemoglobin 29.7 pg (25.0-34.0); Mean Corpuscular Hgb Conc 32.7 g/dL (32.0-36.0); Mean Corpuscular Volume 90.9 fL (80.0-100.0); Mean Platelet Volume 10.7 fL (9.4-12.4); Platelet Count 229 K/uL (130-400); RDW Coefficient of Variation 14.8 % (11.5-14.5); RDW Standard Deviation 49.5 fL (36.4-46.3); Red Blood Count 4.27 M/uL (4.20-5.40); White Blood Count 15.91 K/ul (4.8-10.8)
[2022-11-03 07:24] LABS: BUN Creatinine Ratio 28.8 (10-20); Calcium 8.6 mg/dl (8.6-10.3); Creatinine Clr Calc Pharmacy 94.9 ml/min; Est GFR (African American) 100.2 ml/min; Est GFR (Non-African American) 86.4 ml/min; Potassium 3.6 mmol/L (3.5-5.1)
[2022-11-03] MEDS ORDERED: ENALAPRIL MALEATE 10 MG TAB PO SCH (09:00)
[2022-11-03] MEDS ORDERED: hydroCHLOROthiazide 25 MG TAB PO SCH (09:00)
[2022-11-03] MEDS ORDERED: NON-FORMULARY MEDICATION (Levocetirizine [Xyzal] 5 mg Tablet) PO SCH (09:00)
[2022-11-03] MEDS: MULTIVITAMIN TAB PO SCH (09:31)
[2022-11-03] MEDS: CHOLECALCIFEROL 5,000 UNITS 125 MCG TAB PO SCH (09:31)
[2022-11-03] MEDS: CETIRIZINE HCL 10 MG TABLET PO SCH (09:32)
[2022-11-03] MEDS: ATENOLOL 25 MG TABLET PO SCH (09:32)
[2022-11-03] MEDS: OXYBUTYNIN CHLORIDE XL 5 MG TABCR PO SCH (09:32)
[2022-11-03] MEDS: VENLAFAXINE HCL XR 150 MG CAPXR PO SCH (09:33)
[2022-11-03] MEDS: ASPIRIN 81 MG ECTAB PO SCH ×2 (09:33→19:38)
[2022-11-03] MEDS: PANTOprazole 40 MG TAB PO SCH (09:33)
[2022-11-03] MEDS: FEXOFENADINE HCL 180 MG TAB PO SCH (09:33)
[2022-11-03] MEDS: TOPIRAMATE 25 MG TAB PO SCH ×2 (09:33→19:36)
[2022-11-03] MEDS: DOCUSATE SODIUM 100 MG CAP PO SCH ×2 (09:33→19:37)
[2022-11-03] MEDS: UMECLIDINIUM BROMIDE 62.5MCG/BLISTER 7 PUFFS/INHALER INH SCH (09:37)
[2022-11-03] MEDS: KETOROLAC TROMETHAMINE 15 MG/ML VIAL IV PRN ×2 (09:45→16:29)
--- NOTE | 2022-11-03 10:08 | Orthopedic Progress Note ---
Date of Service November 03, 2022 Assessment & Plan (1) Primary osteoarthritis of left knee: Plan: Postop day 1 status post left total knee arthroplasty PT/OT protocols. Weightbearing as tolerated. Use of immobilizer on the knee if needed. DVT prophylaxis-aspirin p.o. twice daily, SCDs, WAYLON hose. Pain management as written. Leukocytosis-likely secondary to from preoperative steroids and or surgical stress. Patient currently asymptomatic. DC planning-patient is planning for outpatient PT upon discharge. Admission and Anticipated Discharge Date Admission Date: November 02, 2022 Subjective Postop day 1 Patient sitting in her chair at the bedside. Occupational therapy is just finishing up their session. She states that patient was continuing to have some weakness in the operative knee and her knee was slightly buckling during standing up and sitting down. No other complaints. Pain is controlled. Physical Exam Physical Exam: Dressings are clean, dry, and intact. Calves are soft nontender. Continues to have some weakness in the operative knee which is likely secondary to her intraoperative injection for pain control. She does have good dorsiflexion and plantarflexion of the left foot. Hemovac drainage was 125 mL from the previous shift. Results & Data Vital Signs (Past 12 Hours) Vital Signs Temp Pulse Pulse Resp BP Pulse Ox O2 Del Method 11/03/22 06:08 36.5 C 70 16 133/78 96 Room Air 11/03/22 03:00 36.6 C 66 18 124/71 95 CPAP 11/03/22 03:22 14 11/02/22 23:20 61 14 94 11/02/22 23:09 36.6 C 68 14 116/68 95 Room Air FiO2 11/03/22 06:08 11/03/22 03:00 11/03/22 03:22 21 11/02/22 23:20 21 11/02/22 23:09 Laboratory Results Laboratory Results WBC 15.91 K/ul (4.8-10.8) H 11/03/22 06:33 RBC 4.27 M/uL (4.20-5.40) 11/03/22 06:33 Hgb 12.7 g/dl (12.0-16.0) 11/03/22 06:33 Hct 38.8 % (37.0-47.0) 11/03/22 06:33 MCV 90.9 fL (80.0-100.0) 11/03/22 06:33 MCH 29.7 pg (25.0-34.0) 11/03/22 06:33 MCHC 32.7 g/dL (32.0-36.0) 11/03/22 06:33 RDW Std Deviation 49.5 fL (36.4-46.3) H 11/03/22 06:33 RDW Coeff of Carolann 14.8 % (11.5-14.5) H 11/03/22 06:33 Plt Count 229 K/uL (130-400) 11/03/22 06:33 MPV 10.7 fL (9.4-12.4) 11/03/22 06:33 Sodium 140 mmol/L (136-145) 11/03/22 06:33 Potassium 3.6 mmol/L (3.5-5.1) 11/03/22 06:33 Chloride 108 mmol/L (98-107) H 11/03/22 06:33 Carbon Dioxide 26 mmol/L (21-32) 11/03/22 06:33 Anion Gap 6 (3-11) 11/03/22 06:33 BUN 21 mg/dl (6-23) 11/03/22 06:33 Creatinine 0.73 mg/dl (0.6-1.2) 11/03/22 06:33 Est Cr Clr Drug Dosing 94.9 ml/min 11/03/22 06:33 Est GFR ( Amer) 100.2 ml/min 11/03/22 06:33 Est GFR (Non-Af Amer) 86.4 ml/min 11/03/22 06:33 BUN/Creatinine Ratio 28.8 (10-20) H 11/03/22 06:33 Glucose 141 mg/dl (70-99(Fasting)) H 11/03/22 06:33 Calcium 8.6 mg/dl (8.6-10.3) 11/03/22 06:33 SARS-CoV-2, RNA, NAAT NEGATIVE (NEGATIVE) 11/02/22 Unknown Impressions Knee X-Ray 11/02/22 10:08 XR knee LT 1 or 2V routine CLINICAL HISTORY: Postoperative evaluation. COMPARISON: Knee radiographs August 04, 2022. MRI of the left knee September 18, 2022. FINDINGS: Alignment of the total left knee arthroplasty is anatomic. There is no periprosthetic fracture or unexpected radiopaque foreign body. There are skin mary jo. Surgical drains are noted. IMPRESSION: Expected findings following total left knee arthroplasty. ACT 112: Negative or not required by law. Electronically signed by: Curtis Asher M.D. 11/02/2022 10:37 AM
--- NOTE | 2022-11-03 12:11 | Hospitalist Progress Note ---
Date of Service November 03, 2022 Assessment & Plan (1) Status post total left knee replacement: Plan: -Currently stable on RA and hemodynamically stable -Pain control, perioperative abx, DVT PPX, and IV fluids per the primary team -Agree with am labs, we will follow -Ordered HS CPAP while admitted -Thank you for allowing us to participate in the care of this patient, please reach out with any questions or concerns -Reviewed AM labs, leukocytosis noted but likely demargination from surgery. H&H stable. BMP reviewed, electrolytes WNL, renal function stable. (2) Ankylosing spondylitis: Plan: -Stable -Continue cyclosporine eye drops and artificial tears as needed -Ok to hold Leflunomide until discharge (3) COPD (chronic obstructive pulmonary disease): Plan: -Stable on RA -Continue prn Spiriva and albuterol (4) HTN (hypertension): Plan: -Stable -Would continue to hold hydrochlorothiazide today as she is euvolemic -Can continue atenolol, enalapril, and HCTZ tomorrow if hemodynamically stable with stable renal function/electrolytes (5) Anxiety: Plan: -Continue venlafaxine, HS Trazodone (6) RLS (restless legs syndrome): Plan: -Continue Pramipexole (7) Hyperlipemia: Plan: -Contiue statin (8) GERD (gastroesophageal reflux disease): Plan: -Agree with daily pantoprazole while admitted Plan Recommended nystatin powder which pt can obtain OTC to apply to candidal rash under pannus. She should first clean with mild soap and water and ensure area is completely dry. Then apply powder as directed. Would recommend having this re- evaluated at her next PCP appointment to ensure it is improving. Patient is doing well post operatively, no additional recommendations at this time. She is stable from medical standpoint for discharge. Will sign off, but please notify if any acute needs should arise while she remains in house. Thank you for allowing us to participate in the care of your patient. Plan has been d/w Dr. Arellano. Admission and Anticipated Discharge Date Admission Date: November 02, 2022 Supervising Physician Co-Signing Physician Notes The patient was not seen by me. The chart was reviewed. Case discussed with IVA Wolfe. Agree with assessment and plan Subjective Patient seen on daily rounds this morning. Voices no complaints/concerns. Knee pain is adequately controlled. Denies h/o pe/dvt, dyspnea, chest pain, n/v/d. She is planning to return home with her . Physical Exam Physical Exam: GENERAL: 67 yo well-developed, well-nourished F. NAD. LUNGS: Clear to auscultation bilaterally w/o W/R/R. CARDIOVASCULAR: Regular rate and rhythm. No M/G/R. No JVD. ABDOMEN: Soft, non-tender and non-distended. BS normoactive x 4 quad. Candidal rash noted under abdominal pannus. EXTREMITIES: No edema. Non-tender. Peripheral pulses +2/4. LLE: knee examined, dressed and wrapped. Hemovac noted. No calf tenderness. Neg ronny's sign. NV intact. Results & Data Results & Data Vital Signs (Past 12 Hours) Vital Signs Temp Pulse Resp BP Pulse Ox O2 Del Method FiO2 11/03/22 06:08 36.5 C 70 16 133/78 96 Room Air 11/03/22 03:00 36.6 C 66 18 124/71 95 CPAP 11/03/22 03:22 14 21 Laboratory Results 11/03/22 06:33 11/03/22 06:33 PG Care Time/CCT Total # of Minutes Spent Total Time Spent with Patient: Total time spent is greater than 50% in coordination of care (as documented) at patient's floor/unit and/or counseling patient: Coding Level of Care Code 98942 SUB INP/OBS CARE 2/35MIN Diagnoses Status post total left knee replacement Z96.652 Ankylosing spondylitis M45.9 COPD (chronic obstructive pulmonary disease) J44.9 HTN (hypertension) I10 Anxiety F41.9 RLS (restless legs syndrome) G25.81 Hyperlipemia E78.5 GERD (gastroesophageal reflux disease) K21.9
[2022-11-03] MEDS: NYSTATIN POWDER 15GM BTL EXT SCH ×3 (15:47→19:38)
[2022-11-03] MEDS: SENNA 8.6 MG TAB PO SCH (19:36)
[2022-11-03] MEDS: PRAMIPEXOLE DIHYDROCHLO 0.25 MG TAB PO SCH (19:37)
[2022-11-03] MEDS: GABAPENTIN 100 MG CAP PO SCH (19:37)
[2022-11-03] MEDS: MONTELUKAST SODIUM 10 MG TABLET PO SCH (19:37)
[2022-11-03] MEDS: ROSUVASTATIN CALCIUM 10 MG TAB PO SCH (19:38)
[2022-11-04] MEDS: oxyCODONE HCL IR 5 MG TAB (IMMEDIATE RELEASE) PO PRN ×3 (03:10→13:03)
[2022-11-04] MEDS: ACETAMINOPHEN 500 MG TAB PO SCH (05:05)
--- NOTE | 2022-11-04 06:33 | Orthopedic Progress Note ---
Date of Service November 04, 2022 Assessment & Plan (1) Primary osteoarthritis of left knee: Plan: Postop day 2 status post left total knee arthroplasty PT/OT protocols. Weightbearing as tolerated. has been able to walk now without immobilizer DVT prophylaxis-aspirin p.o. twice daily, SCDs, WAYLON hwang. Pain management as written. DC planning-patient would like to set up HHPT prior to d/c, d/c later today Admission and Anticipated Discharge Date Admission Date: November 02, 2022 Supervising Physician Co-Signing Physician Notes Patient seen and examined. Agree with IVA Quintanilla's note as above. Pain is well controlled. Ambulating with therapy. H/H 12.7/38.8. Plan for discharge home today. Subjective POD #2 s/p Left TKA Review of Systems Constitutional: no fever, no chills and no sweats Respiratory: no cough and no dyspnea Cardiovascular: no chest pain and no dyspnea Gastrointestinal: no abdominal pain, no nausea and no vomiting Physical Exam Physical Exam: Vital Signs Temp 36.5 C 11/03/22 21:57 Pulse 56 L 11/03/22 21:57 Resp 18 11/03/22 21:57 BP 126/72 11/03/22 21:57 Pulse Ox 96 11/03/22 21:57 O2 Del Method Room Air 11/03/22 21:57 O2 Flow Rate 1 11/02/22 12:43 FiO2 21 11/03/22 03:22 Intake & Output 11/03/22 11/03/22 11/04/22 06:59 18:59 06:59 Intake Total 1987.333 Output Total 215 / 215 125 / 257 132 / 257 Balance -215 / 1773.333 -125 / -257 -132 / -257 Intake: IV 0 .333 Sodium Chlorid e 0.9% 1000ML 1, .333 000 ml @ 100 m ls/hr IV .Q10H [facility] Rx#:[id number] Output: Drain Output 215 / 215 125 / 255 130 / 255 Left Knee 125 / 125 Left Knee Hemo vac 215 / 215 130 / 130 # Bowel Movement s 2 / 2 Other: # Unmeasured Voi ds 1 1 Musculoskeletal: Left Leg: NVDI, calf SNT, negative ronny sign. DP palpable, able to wiggle toes/ankle movement without difficulty. dressing clean dry and intact. Results & Data Vital Signs (Past 12 Hours) Vital Signs Temp Pulse Resp BP Pulse Ox O2 Del Method 11/03/22 21:57 36.5 C 56 L 18 126/72 96 Room Air Laboratory Results Laboratory Results WBC 15.91 K/ul (4.8-10.8) H 11/03/22 06:33 RBC 4.27 M/uL (4.20-5.40) 11/03/22 06:33 Hgb 12.7 g/dl (12.0-16.0) 11/03/22 06:33 Hct 38.8 % (37.0-47.0) 11/03/22 06:33 MCV 90.9 fL (80.0-100.0) 11/03/22 06:33 MCH 29.7 pg (25.0-34.0) 11/03/22 06:33 MCHC 32.7 g/dL (32.0-36.0) 11/03/22 06:33 RDW Std Deviation 49.5 fL (36.4-46.3) H 11/03/22 06:33 RDW Coeff of Carolann 14.8 % (11.5-14.5) H 11/03/22 06:33 Plt Count 229 K/uL (130-400) 11/03/22 06:33 MPV 10.7 fL (9.4-12.4) 11/03/22 06:33 Sodium 140 mmol/L (136-145) 11/03/22 06:33 Potassium 3.6 mmol/L (3.5-5.1) 11/03/22 06:33 Chloride 108 mmol/L (98-107) H 11/03/22 06:33 Carbon Dioxide 26 mmol/L (21-32) 11/03/22 06:33 Anion Gap 6 (3-11) 11/03/22 06:33 BUN 21 mg/dl (6-23) 11/03/22 06:33 Creatinine 0.73 mg/dl (0.6-1.2) 11/03/22 06:33 Est Cr Clr Drug Dosing 94.9 ml/min 11/03/22 06:33 Est GFR ( Amer) 100.2 ml/min 11/03/22 06:33 Est GFR (Non-Af Amer) 86.4 ml/min 11/03/22 06:33 BUN/Creatinine Ratio 28.8 (10-20) H 11/03/22 06:33 Glucose 141 mg/dl (70-99(Fasting)) H 11/03/22 06:33 Calcium 8.6 mg/dl (8.6-10.3) 11/03/22 06:33 SARS-CoV-2, RNA, NAAT NEGATIVE (NEGATIVE) 11/02/22 Unknown Impressions Knee X-Ray 11/02/22 10:08 XR knee LT 1 or 2V routine CLINICAL HISTORY: Postoperative evaluation. COMPARISON: Knee radiographs August 04, 2022. MRI of the left knee September 18, 2022. FINDINGS: Alignment of the total left knee arthroplasty is anatomic. There is no periprosthetic fracture or unexpected radiopaque foreign body. There are skin mary jo. Surgical drains are noted. IMPRESSION: Expected findings following total left knee arthroplasty. ACT 112: Negative or not required by law. Electronically signed by: Curtis Asher M.D. 11/02/2022 10:37 AM
[2022-11-04] MEDS: PANTOprazole 40 MG TAB PO SCH (08:29)
[2022-11-04] MEDS: MULTIVITAMIN TAB PO SCH (08:29)
[2022-11-04] MEDS: ASPIRIN 81 MG ECTAB PO SCH (08:29)
[2022-11-04] MEDS: CETIRIZINE HCL 10 MG TABLET PO SCH (08:29)
[2022-11-04] MEDS: FEXOFENADINE HCL 180 MG TAB PO SCH (08:30)
[2022-11-04] MEDS: ATENOLOL 25 MG TABLET PO SCH (08:30)
[2022-11-04] MEDS: TOPIRAMATE 25 MG TAB PO SCH (08:31)
[2022-11-04] MEDS: DOCUSATE SODIUM 100 MG CAP PO SCH (08:31)
[2022-11-04] MEDS: VENLAFAXINE HCL XR 150 MG CAPXR PO SCH (08:31)
[2022-11-04] MEDS: UMECLIDINIUM BROMIDE 62.5MCG/BLISTER 7 PUFFS/INHALER INH SCH (08:31)
[2022-11-04] MEDS: OXYBUTYNIN CHLORIDE XL 5 MG TABCR PO SCH (08:31)
[2022-11-04] MEDS: CHOLECALCIFEROL 5,000 UNITS 125 MCG TAB PO SCH (08:31)
[2022-11-04] MEDS: NYSTATIN POWDER 15GM BTL EXT SCH ×2 (08:44→12:06)
[2022-11-04] MEDS ORDERED: ENALAPRIL MALEATE 10 MG TAB PO SCH (09:00)
[2022-11-04] MEDS ORDERED: hydroCHLOROthiazide 25 MG TAB PO SCH (09:00)
== END 2022-11-04 13:54 | disposition home health service (06) ==
LOC: ASU 06:54 → 3E 06:54